=== PATIENT | female | born 1980 | race Caucasian/White ===

== ENCOUNTER 2021-02-28 08:42 | Inpatient (IN) | payer MEDICAID, OTHER ==
[~2021-02-28] VITALS: Ht 157.5 cm; Wt 56.4 kg
[2021-02-28] MEDS ORDERED: GABA-1181 PO (08:54)
[2021-02-28] MEDS ORDERED: CLOZ25TA5 PO (08:54)
[2021-02-28] MEDS ORDERED: ACETAMINOPHEN 500 MG TABLET PO ONE (09:30)
[2021-02-28] MEDS ORDERED: KETOROLAC TROMETHAMINE 30 MG/ML VIAL IM ONE (09:30)
[2021-02-28] MEDS ORDERED: ONDANSETRON HCL 4 MG TABLET PO ONE (09:30)
[2021-02-28 09:34] LABS: APPEARANCE,URINE CLOUDY (CLEAR); BILIRUBIN,URINE NEGATIVE (NEGATIVE); GLUCOSE, URINE (UA) NEGATIVE (NEGATIVE); KETONES,URINE NEGATIVE (NEGATIVE); LEUKOCYTE ESTERASE ,URINE MODERATE (NEGATIVE); NITRATE,URINE NEGATIVE (NEGATIVE); OCCULT BLOOD,URINE NEGATIVE (NEGATIVE); PROTEIN,URINE NEGATIVE (NEGATIVE); UROBILINOGEN,URINE 0.2 mg/dL (<=1.0)
[2021-02-28 09:38] LABS: RBC,URINE 0-2 /HPF (0-2); WBC,URINE 26-50 /HPF (0-5)
[2021-02-28 09:39] LABS: BACTERIA,URINE Moderate /HPF (None Seen); SQUAMOUS EPITHELIAL CELL,UR Many /LPF (None Seen)
[2021-02-28 09:43] LABS: AMPHET/METH SCREEN,URINE NEGATIVE (NEGATIVE); BARBITURATE SCREEN, URINE NEGATIVE (NEGATIVE); BENZODIAZEPINES SCREEN,URINE NEGATIVE (NEGATIVE); CANNABINOID SCREEN,URINE NEGATIVE (NEGATIVE); COCAINE SCREEN,URINE NEGATIVE (NEGATIVE); METHADONE SCREEN, URINE NEGATIVE (NEGATIVE); OPIATE SCREEN,URINE NEGATIVE (NEGATIVE)
[2021-02-28 09:45] LABS: PHENCYCLIDINE SCREEN,URINE NEGATIVE (NEGATIVE)
[2021-02-28 09:53] LABS: BASOPHILS % (AUTO) 0.7 % (0.0-2.0); HEMATOCRIT 39.7 % (36-46); HEMOGLOBIN 13.3 g/dL (12.0-16.0); LYMPHOCYTES % (AUTO) 13.8 % (22.0-44.0); MEAN CORPUSCULAR HGB CONC 33.6 G/dL (31.0-37.0); MEAN CORPUSCULAR VOLUME 98 fL (80-100); MONOCYTES # (AUTO) 0.3 K/uL (0.1-1.0); MONOCYTES % (AUTO) 4.8 % (2.0-9.0); NEUTROPHILS # (AUTO) 5.8 K/uL (1.8-7.7); NEUTROPHILS % (AUTO) 79.7 % (40.0-70.0); PLATELET COUNT (AUTO) 221 K/uL (150-450); RED BLOOD CELL COUNT(AUTO) 4.03 MIL/uL (4.00-5.20); RED CELL DISTRIBUTION WIDTH 12.5 % (11.5-14.5)
[2021-02-28 09:54] LABS: ANION GAP 8 mmol/L (8-16); CALCIUM, TOTAL 8.6 mg/dL (8.8-10.5); CARBON DIOXIDE 27 mmol/L (22-29); CHLORIDE 108 mmol/L (98-107); GLOMERULAR FILTR. RATE CALC > 60 mL/min (>60); GLUCOSE,RANDOM 101 mg/dL (70-110); POTASSIUM 4.5 mmol/L (3.5-5.1); SODIUM SERUM 143 mmol/L (136-145); UREA NITROGEN, BLOOD 15 mg/dL (7-18)
[2021-02-28] MEDS ORDERED: CEPHALEXIN MONOHYDRATE 500 MG CAPSULE PO ONE (10:00)
[2021-02-28 10:08] LABS: ALANINE AMINOTRANSFERASE 20 U/L (12-78); ALBUMIN 3.3 g/dL (3.4-5.0); ALKALINE PHOSPHATASE 64 U/L (46-116); ASPARTATE AMINOTRANSFERASE 9 U/L (15-37); BILIRUBIN,TOTAL 0.2 mg/dL (0.1-1.0)
[2021-02-28] MEDS: LORazepam 2 MG TABLET PO PRN (16:11)
[2021-02-28 18:03] LABS: COVID AG,FIA SOURCE NASOPHARYNGEAL
[2021-02-28 22:51] VITALS: BP 138/89
[2021-02-28] MEDS: ZOLPIDEM TARTRATE 10 MG TABLET PO PRN (23:48)
[2021-03-01 02:08] VITALS: BP 122/88
[2021-03-01] MEDS: LORazepam 2 MG TABLET PO PRN ×4 (04:18→19:58)
[2021-03-01 07:54] LABS: CHOL/HDL RATIO 4.1 (3.9-5.7); FREE T4 (FREE THYROXINE) 0.65 ng/dL (0.76-1.46); THYROID STIMULATING HORMONE 0.12 uIU/mL (0.36-3.74)
[2021-03-01] MEDS: HALOPERIDOL 5 MG TABLET PO PRN ×2 (08:29→16:35)
[2021-03-01] MEDS ORDERED: MAG HYDROX/AL HYDROX/SIMETH ES 30 ML SUSPENSION UDCUP PO PRN (08:30)
[2021-03-01] MEDS ORDERED: DOCUSATE SODIUM 100 MG CAPSULE PO PRN (08:30)
[2021-03-01] MEDS ORDERED: LOPERAMIDE HCL 2 MG CAPSULE PO PRN (08:30)
[2021-03-01] MEDS ORDERED: MAGNESIUM HYDROXIDE SUSPENSION 30 ML UDCUP PO PRN (08:30)
[2021-03-01] MEDS ORDERED: ALBUTEROL SULFATE HFA 90 MCG/PUFF 8 GM INHALER IH PRN (08:30)
[2021-03-01] MEDS ORDERED: ACETAMINOPHEN 325 MG TABLET PO PRN (08:30)
[2021-03-01] MEDS ORDERED: PETROLATUM,WHITE 28 GM JELLY TP PRN (08:30)
[2021-03-01] MEDS ORDERED: NICOTINE 14 MG/24 HOUR PATCH TD PRN (08:30)
[2021-03-01] MEDS ORDERED: GuaiFENesin/D-METHORPHAN [SUGAR-FREE] 200-20MG/10 ML SYRUP UDCUP PO PRN (08:30)
[2021-03-01] MEDS ORDERED: ONDANSETRON HCL 4 MG TABLET PO PRN (08:30)
[2021-03-01] MEDS ORDERED: IBUPROFEN 400 MG TABLET PO PRN (08:30)
[2021-03-01] MEDS ORDERED: CloNIDine HCL 0.1 MG TABLET PO PRN (08:30)
[2021-03-01] MEDS: ARIPiprazole 5 MG TABLET PO SCH (12:22)
[2021-03-01] MEDS: SERTRALINE HCL 50 MG TABLET PO SCH (12:22)
[2021-03-01 16:06] VITALS: BP 116/75
[2021-03-01] MEDS: ZOLPIDEM TARTRATE 10 MG TABLET PO PRN (22:14)
[2021-03-02 01:40] VITALS: BP 120/74
[2021-03-02] MEDS: ARIPiprazole 5 MG TABLET PO SCH (08:23)
[2021-03-02] MEDS: CEPHALEXIN MONOHYDRATE 500 MG CAPSULE PO SCH ×3 (08:23→16:28)
[2021-03-02] MEDS: SERTRALINE HCL 50 MG TABLET PO SCH (08:23)
[2021-03-02] MEDS: LORazepam 2 MG TABLET PO PRN ×2 (08:27→14:18)
[2021-03-02 08:32] VITALS: BP 112/66
[2021-03-02] MEDS: HALOPERIDOL 5 MG TABLET PO PRN (12:11)
[2021-03-02 16:03] VITALS: BP 128/83
[2021-03-02] MEDS: ZOLPIDEM TARTRATE 10 MG TABLET PO PRN (22:10)
[2021-03-03 01:52] VITALS: BP 118/73
[2021-03-03 08:11] VITALS: BP 112/68
[2021-03-03] MEDS: CEPHALEXIN MONOHYDRATE 500 MG CAPSULE PO SCH ×3 (08:21→16:03)
[2021-03-03] MEDS: ARIPiprazole 5 MG TABLET PO SCH (08:21)
[2021-03-03] MEDS: LORazepam 2 MG TABLET PO PRN (08:22)
[2021-03-03] MEDS: SERTRALINE HCL 50 MG TABLET PO SCH (09:36)
[2021-03-03] MEDS: HALOPERIDOL 5 MG TABLET PO PRN (10:53)
[2021-03-03] MEDS ORDERED: CEPH500C3 PO (10:55)
[2021-03-03] MEDS ORDERED: ARIP5TAB37 PO (10:55)
[2021-03-03] MEDS ORDERED: SERT-158 PO (10:55)
== END 2021-03-03 16:10 | disposition home or self-care (01) | DRG 750 ==
LOC: EMS 08:46 → B3A 18:34
DX: F25.0 Schizoaffective disorder, bipolar type (principal); R45.851 Suicidal ideations; Z59.0 Homelessness; N39.0 Urinary tract infection, site not specified; F19.10 Other psychoactive substance abuse, uncomplicated; F43.12 Post-traumatic stress disorder, chronic; F10.10 Alcohol abuse, uncomplicated; Y90.9 Presence of alcohol in blood, level not specified; F17.210 Nicotine dependence, cigarettes, uncomplicated; Z79.899 Other long term (current) drug therapy; Z20.822 Contact with and (suspected) exposure to COVID-19
CPT/HCPCS: 80053; 80061; 81001; 84439; 84443; 84703; 85025; 87077; 87086; 87186; 99285; G0480; J1885; Q0162